=== PATIENT | female | born 1955 | race American Indian/Alaskan Native ===

== ENCOUNTER 2017-07-23 14:32 | Outpatient (CLI) | payer BC ==
--- NOTE | 2017-07-23 18:41 | Magnetic Resonance Report ---
MR scan of the cranium was performed without contrast. Pulse sequences included: 1. T1 weighted sagittal and axial images without contrast 2. T2 weighted axial and coronal images 3. FLAIR axial images 4. Diffusion-weighted axial images 5. Apparent diffusion coefficient images Views of the posterior fossa showed a normal craniocervical junction. Cerebellar pontine angles were normal with normal seventh-eighth nerve complexes. Brainstem showed an area of decreased signal in the midline basis pontis that also showed increased signal on DWI and decreased perfusion imaging suggesting an infarct. In the left basis pontis a punctate area of increased signal was also seen on T2 images, probably an extension of the midline infarct. The cerebellum showed a small area of abnormal signal in the right neocerebellum cerebellum that was probably a small cyst. The ventricular system showed no dilatation or distortion. Images of the hemispheres showed no areas of increased or decreased signal. Sinuses, flow voids in the standing rock of [place], orbits, pituitary and basal ganglia were normal. Impression: Abnormal MR scan of the cranium without contrast. 1. 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 small right cerebellar cyst (unlikely to be of clinical significance)
== END 2017-07-23 14:33 | disposition home or self-care (01) ==
LOC: SPVIMAG 14:32
PROVIDERS: ATTEND Specialist
DX: I63.9 Cerebral infarction, unspecified (principal); G93.0 Cerebral cysts
CPT/HCPCS: 70551